=== PATIENT | female | born 1960 | race Caucasian/White ===

== ENCOUNTER 2021-09-24 09:56 | Day surgery (SDC) | payer SELFPAY | END 2021-09-24 23:52 | disposition home or self-care (01) | LOC: MOI US 09:56 → MOI MAM 10:15 → EDSTATUS 10:15 → MOI US 10:15 → MOI MAM 10-20 10:00 | DX: C50.911 Malignant neoplasm of unspecified site of right female breast (principal); Z17.0 Estrogen receptor positive status [ER+] | CPT/HCPCS: 19083; 77065; A4648 ==